=== PATIENT | female | born 1950 ===

== ENCOUNTER 2024-08-22 23:16 | Inpatient (IN) | payer OTHER, MEDICARE ==
[~2024-08-22] VITALS: Ht 157.5 cm; Wt 83.5 kg
[2024-08-23] MEDS: SODIUM CHLORIDE 0.9% 1,000 ML IV ONE (00:09)
[2024-08-23 00:10] VITALS: PULSE 99; RESP 16; O2SAT 94
--- NOTE | 2024-08-23 04:25 | ED.PDOC ---
History of Present Illness HPI Comments 74 y/o obese F is BIBA for c/o syncope, today. Per EMS report, patient's family called after patient had a sudden and unprovoked, witnessed syncopal episode at home. Family on scene commented on patient dealing with flu-like symptoms, which includes nausea, vomiting, and diarrhea, for the past few days prior. Patient was stated to had another syncopal episode secondary to bradycardic onset after endorsing on lower abdominal pain and nausea en route. Upon arrival to ED, patient is back at her baseline, with no reported chest pain, shortness of breath, weakness, numbness, or other associated symptoms or modifiers at this time. Chief Complaint: Syncope Time Seen by MD: 03:50 Reviewed Notes: Nurses Notes, Dispatch Associate Notes, Medications, Allergies Allergies: Coded Allergies: Penicillins (Verified Allergy, Unknown, 08/23/24) Information Source: Patient, Emergency Med Personnel Mode of Arrival: EMS Severity: Moderate Timing: Hours Duration: Since onset Prehospital treatment: 12 Lead EKG, Senior Sharepoint Architect Past Medical History PAST MEDICAL HISTORY: Denies Surgical History: Denies all surgeries ON SITE PROPERTY MANAGER History: Denies all ON SITE PROPERTY MANAGER Hx Family History Family History: Unknown Social History Smoker: Non-Smoker Alcohol: Denies ETOH Use Drugs: Denies Drug Use Lives In: Home All Other Systems: Reviewed and Negative (Comprehensive systems review obtained and negative except for what is stated in the HPI.) Physical Exam General Appearance: No Apparent Distress, Obese HEENT: Normal ENT Inspection, Pharynx Normal, TMs Normal Neck: Full Range of Motion, Non-Tender, Normal, Normal Inspection Respiratory: Chest Non-Tender, Lungs Clear, No Accessory Muscle Use, No Respiratory Distress, Normal Breath Sounds Cardiovascular: Bradycardia, No Edema, No JVD, No Murmur, No Gallop, Normal Peripheral Pulses, Other (regular rhythm) Breast Exam: Deferred Gastrointestinal: No Organomegaly, Non Tender, No Pulsatile Mass, Normal Bowel Sounds, Soft Genitalia: Deferred Pelvic: Deferred Rectal: Deferred Extremities: No calf tenderness, Normal capillary refill, Normal inspection, Normal range of motion, Non-tender, No pedal edema Musculoskeletal : Apperance: Normal Neurologic: Alert, senior cytotechnologist II-XII nml as Tested, No Motor Deficits, Normal Affect, Normal Mood, No Sensory Deficits Cerebellar Function: Normal Reflexes: Normal Skin: Dry, Normal Color, Warm Lymphatic: No Adenopathy Was a procedure done? Was a procedure done?: No EKG EKG : Pulse Rate (adult): 67 [place]: Normal Cardiac Rhythm: NSR Block: None Hypertrophy: None ST: Normal Differential Dx Considerations may include: vasovagal response, bradycardia, electrolyte imbalance, viral syndrome, hypoxia, among others X-Ray, Labs, Meds, VS Vital Signs Date Time Temp Pulse Resp B/P (MAP) Pulse Ox O2 Delivery O2 Flow Rate FiO2 08/23/24 05:00 88 18 132/71 (91) 94 08/23/24 04:25 67 08/23/24 04:00 94 21 127/70 (89) 97 08/23/24 03:00 85 13 141/58 (85) 94 08/23/24 01:00 86 10 142/62 (88) 95 08/23/24 00:10 99 16 94 Room Air* 0 21 08/23/24 00:09 98.7 99 16 142/88 (106) 94 98.7 08/22/24 23:24 67 08/22/24 23:16 98.4 62 18 138/74 (95) 97 98.4 Lab Test 08/23/24 04:30 Range/Units White Blood Count 12.6 H 4.4-10.8 10^3/uL Red Blood Count 4.90 4.0-5.20 10^6/uL Hemoglobin 13.2 12.2-16.2 g/dL Hematocrit 40.1 36.0-46.0 % Mean Corpuscular Volume 81.8 80.0-100.0 fL Mean Corpuscular Hemoglobin 27.0 L 28.0-32.0 pg Mean Corpuscular Hemoglobin Concent 33.0 32.0-36.0 g/dL Red Cell Distribution Width 14.8 H 11.8-14.3 % Platelet Count 328 140-450 10^3/uL Mean Platelet Volume 8.0 6.9-10.8 fL Neutrophils (%) (Auto) 81.6 H 37.0-80.0 % Lymphocytes (%) (Auto) 12.0 10.0-50.0 % Monocytes (%) (Auto) 5.7 0.0-12.0 % Eosinophils (%) (Auto) 0.3 0.0-7.0 % Basophils (%) (Auto) 0.4 0.0-2.0 % Neutrophils # (Auto) 10.3 H 1.6-8.6 10 ^3/uL Lymphocytes # (Auto) 1.5 0.4-5.4 10 ^3/uL Monocytes # (Auto) 0.7 0-1.3 10 ^3/uL Eosinophils # (Auto) 0 0-0.8 10 ^3/uL Basophils # (Auto) 0 0-0.2 10 ^3/uL Nucleated Red Blood Cells 0.0 % Sodium Level 141 136-145 mmol/L Potassium Level 3.7 3.5-5.1 mmol/L Chloride Level 110 H 98-107 mmol/L Carbon Dioxide Level 24 20-31 mmol/L Anion Gap 7 5-15 Blood Urea Nitrogen 8 L 9-23 mg/dL Creatinine 0.59 0.550-1.02 mg/dL Glomerular Filtration Rate Calc 93 >90 mL/min BUN/Creatinine Ratio 13.6 10.0-20.0 Serum Glucose 123 H 74-106 mg/dL Calcium Level 8.6 L 8.7-10.4 mg/dL Troponin I High Sensitivity 5 </=34 ng/L Current Medications Medications (Trade) Dose Ordered Sig/Denisha Route Start Time Stop Time Status Last Admin Sodium Chloride 1,000 ml @ 1,000 mls/hr Q1H ONCE IV 08/23/24 05:00 08/23/24 05:59 08/23/24 00:09 Time of 1ST Reevaluation: 04:20 Reevaluation 1ST: Unchanged Patient Education/Counseling: Diagnosis, Treatment Family Education/Counseling: No Family Present Additional Information Previous visit documents reviewed: n/a The following tests were ordered, and results were reviewed by me: CXR, troponin, UA, CBC, BMP, EKG Additional Information was gathered from interviewing the following independent historians: EMS I reviewed and agreed with the following test results read by other providers: CXR I discussed treatment and results with medical personnel and: Patient Departure 1 Departure Time of Disposition: 04:39 (Patient presented with syncope today and should be admitted. Data: 1. I ordered and reviewed the result of at least 3 labs including a CBC, BMP, and troponin. 2. I independently interpreted the following tests: EKG which shows a sinus arrhythmia and a chest x-ray which shows benign chest and a CT head which shows benign brain.Risk:This patient has a high risk of morbidity due to further diagnostic testing or treatment and may suffer from an acute cardiac, neurologic, or infectious disorder. Rationale: Patient should be admitted to the hospital for further management.) Impression: Primary Impression: Syncope and collapse Additional Impression: Tachy-anne syndrome Disposition: ADMITTED INPATIENT Admit to: Med Surg Condition: Serious Critical Care Note Critical Care Time?: No Stability Stability form required: No Heart Score Heart Score: Heart Score Response (Comments) Value History Moderate Suspicious 1 EKG Normal 0 Age >65 2 Risk Factors >3 or Hx ASHD 2 Troponin 1-2 x's Normal limit 1 Total 6 I personally scribed for ANN FENG MD ([email or web address]) on 08/23/24 at 04:25. Electronically submitted by Leopoldo Berry ([email or web address]). ANN FENG MD Aug 23, 2024 04:25
--- NOTE | 2024-08-23 04:37 | DVH ---
CHEST RADIOGRAPH Indication: chest pain Technique: Single frontal view of the chest was obtained Comparison: None FINDINGS: Lines and Tubes: None Lungs: No focal consolidation. Pleura: No effusion. No pneumothorax. Cardiomediastinal contours: Unremarkable Bones: No acute osseous abnormality. IMPRESSION: 1. No acute cardiopulmonary disease.
[2024-08-23 05:04] LABS: Basophils # (auto) 0 10 ^3/uL (0-0.2); Basophils % (auto) 0.4 % (0.0-2.0); Eosinophils # (auto) 0 10 ^3/uL (0-0.8); Eosinophils % (auto) 0.3 % (0.0-7.0); Hematocrit 40.1 % (36.0-46.0); Hemoglobin 13.2 g/dL (12.2-16.2); Lymphocytes # (auto) 1.5 10 ^3/uL (0.4-5.4); Mean Corpuscular Volume 81.8 fL (80.0-100.0); Monocytes # (auto) 0.7 10 ^3/uL (0-1.3); Monocytes % (auto) 5.7 % (0.0-12.0); Neutrophils # (auto) 10.3 10 ^3/uL (1.6-8.6); Neutrophils % (auto) 81.6 % (37.0-80.0); Platelet Count (auto) 328 10^3/uL (140-450); Red Cell Distribution Width 14.8 % (11.8-14.3); White Blood Cell 12.6 10^3/uL (4.4-10.8)
--- NOTE | 2024-08-23 05:07 | DVH ---
EXAM: CT HEAD WITHOUT CONTRAST INDICATION: syncope TECHNIQUE: CT of the head without intravenous contrast. Coronal and sagittal reformatted images are s ubmitted. Radiation Dose : 1. Head: CT Dose: CTDI volume is 54.44 mGy. Dose-length product is 872.73 mGy*cm The dose indicators for CT are the volume Computed Tomography (CT) Dose Index (CTDIvol) and the Dose Length Product (DLP), and are measured in units of mGy and mGy-cm, respectively. These indicators are not patient dose, but values generated from the CT scanner acquisition factors. The report includes radiation exposure data for exposures received during this examination. All CT scans at this medical facility are performed using dose modulation techniques as appropriate to a performed exam including the following: Automated exposure control was utilized; adjustment of the MA and/or KV according to patient size; and use of iterative reconstruction technique. COMPARISON: None FINDINGS: There is no evidence of acute intracranial hemorrhage, extra-axial collection, mass effect, midline s hift, herniation or hydrocephalus. Punctate calcifications scattered throughout the brain parenchymal. The ventricles, sulci and cisterns are age appropriate. The herman-white differentiation is intact. Mastoid air cells are clear. Mild mucosal thickening in the maxillary sinuses. No depressed calvarial fracture. The surrounding soft tissues are unremarkable. IMPRESSION: 1. No evidence of acute intracranial abnormality. 2. Punctate intracranial calcifications may reflect sequelae of neurocysticercosis.
[2024-08-23 05:13] LABS: Anion Gap 7 (5-15); Carbon Dioxide 24 mmol/L (20-31); Potassium 3.7 mmol/L (3.5-5.1); Sodium 141 mmol/L (136-145)
[2024-08-23 05:19] LABS: BUN/Creatinine Ratio 13.6 (10.0-20.0)
[2024-08-23 05:20] LABS: Blood Urea Nitrogen 8 mg/dL (9-23); Calcium 8.6 mg/dL (8.7-10.4); Chloride 110 mmol/L (98-107); Glucose 123 mg/dL (74-106)
[2024-08-23 08:00] VITALS: PULSE 63; RESP 16; O2SAT 94
[2024-08-23 08:39] LABS: Urine Bacteria None Seen /hpf (None Seen)
[2024-08-23 08:47] LABS: Urine Blood Negative /uL (Negative); Urine Clarity Clear (Clear); Urine Color Light-Yellow (Yellow); Urine Protein, UAD Negative (Negative); Urine Specific Gravity 1.012 (1.001-1.035); Urine Squamous Epithelial Cell FEW /hpf (<5); Urine Urobilinogen Normal (Negative); Urine WBC 7 /HPF (0-5)
[2024-08-23] MEDS ORDERED: ACETAMINOPHEN 325 MG TAB PO PRN (11:30)
[2024-08-23] MEDS ORDERED: MORPHINE SULFATE INJ 2 MG/ml SYRG IV PRN (11:30)
[2024-08-23] MEDS ORDERED: DOCUSATE SOD 100 MG CAP PO PRN (11:30)
[2024-08-23] MEDS ORDERED: NITROGLYCERIN 0.4 MG SL TAB SL PRN (11:30)
[2024-08-23] MEDS ORDERED: HYDROcodone-ACET 5/325MG TAB PO PRN (11:30)
[2024-08-23] MEDS ORDERED: ONDANSETRON HCL 4 MG/2 ML VIAL IV PRN (11:30)
--- NOTE | 2024-08-23 11:51 | DVHHP2 ---
History of Present Illness Reason for Visit: syncopal episode History of Present Illness Annel Espinoza is a 74-year-old female with past medical history of cervical cancer with hysterectomy in the , who was brought to the hospital for syncopal episode. Patient has been experiencing nausea, diarrhea, and lower abdominal pain for 2 days. Last night when exiting the bathroom she had a syncopal episode. Family called EMS. While EMS was there, they placed her on the monitor, she began to feel bad again, they witnessed her HR drop into the 30's and she had another syncopal episode. While in route to the hospital, her HR dropped into the 30s again, and she had another syncopal episode. At my time of assessment I witnessed the patient's HR fluctuate from low 60-90s while she was lying in bed. Heme/Onc: Cancer (cervical cancer in the ) Past Surgical History: Hysterectomy Smoke: No ALCOHOL: none Drugs: None Lives: with Family Review of Systems Constitutional: No: Fever, Chills, Sweats, Weakness, Malaise, Other Eyes: No: Pain, Vision change, Conjunctivae inflammation, Eyelid inflammation, Other, Redness ENT: No: Ear pain, Ear discharge, Nose pain, Nose discharge, Nose congestion, Mouth pain, Mouth swelling, Throat pain, Throat swelling, Other Respiratory: No: Cough, Dry, Shortness of breath, SOB with excertion, Wheezing, Hemoptysis, Pleuritic Pain, Sputum, Wheezing, Other Cardiovascular: No: Chest Pain, Palpitations, Orthopnea, Paroxysmal Noc. Dyspnea, Edema, Lt Headedness, Other Gastrointestinal: Nausea (2 days), Abdominal Pain (2 days), Diarrhea (2 days); No: Vomiting, Constipation, Melena, Hematochezia, Other Genitourinary: No Dysuria, No Frequency, No Incontinence, No Hematuria, No Retention, No Other Musculoskeletal: No: other, neck pain, shoulder pain, arm pain, back pain, hand pain, leg pain, foot pain Skin: No: Rash, Lesions, Jaundice, Bruising, Other Neurological: Other (Syncopal episode); No: Weakness, Numbness, Incoordination, Change in speech, Confusion, Seizures Allergies: Coded Allergies: Penicillins (Verified Allergy, Unknown, 08/23/24) Exam Vital Signs Vital Signs Date Time Temp Pulse Resp B/P (MAP) Pulse Ox O2 Delivery O2 Flow Rate FiO2 08/23/24 10:00 62 16 109/47 (67) 97 08/23/24 09:00 98.1 98.1 08/23/24 08:00 Room Air* 0 21 General Appearance: Alert, Oriented X3, Cooperative, mild distress HEENT: Atraumatic, PERRLA Respiratory: Clear to auscultation, Normal air movement Cardiovascular: Normal S1, Normal S2, Other (Sinus arrhythmia,) Abdominal: Normal bowel sounds, Soft, Other (RLQ pain) Extremities: No clubbing, No cyanosis, No edema, Normal pulses, No tenderness/swelling Skin: No rashes, No breakdown, No significant lesion Neuro: Normal gait, Normal speech, Strength at 5/5 X4 ext Psych/Mental Status: Mental status NL, Mood NL Labs/Xrays Labs Test 08/23/24 08:00 08/23/24 05:45 08/23/24 04:30 Range/Units Urine Color Light-yellow Yellow Urine Clarity Clear Clear Urine pH 6.0 5.0-9.0 Urine Specific [place] 1.012 1.001-1.035 Urine Protein Negative Negative Urine Ketones Negative Negative Urine Blood Negative Negative /uL Urine Nitrite Negative Negative Urine Bilirubin Negative Negative Urine Urobilinogen Normal Negative mg/dL Urine Leukocyte Esterase 2+ Negative /uL Urine RBC 2 0 - 4 /hpf Urine Microscopic WBC 7 H 0-5 /HPF Urine Squamous Epithelial Cells Few <5 /hpf Urine Bacteria None seen None Seen /hpf Urine Glucose Normal Normal mg/dL Troponin I High Sensitivity 4 </=34 ng/L White Blood Count 12.6 H 4.4-10.8 10^3/uL Red Blood Count 4.90 4.0-5.20 10^6/uL Hemoglobin 13.2 12.2-16.2 g/dL Hematocrit 40.1 36.0-46.0 % Mean Corpuscular Volume 81.8 80.0-100.0 fL Mean Corpuscular Hemoglobin 27.0 L 28.0-32.0 pg Mean Corpuscular Hemoglobin Concent 33.0 32.0-36.0 g/dL Red Cell Distribution Width 14.8 H 11.8-14.3 % Platelet Count 328 140-450 10^3/uL Mean Platelet Volume 8.0 6.9-10.8 fL Neutrophils (%) (Auto) 81.6 H 37.0-80.0 % Lymphocytes (%) (Auto) 12.0 10.0-50.0 % Monocytes (%) (Auto) 5.7 0.0-12.0 % Eosinophils (%) (Auto) 0.3 0.0-7.0 % Basophils (%) (Auto) 0.4 0.0-2.0 % Neutrophils # (Auto) 10.3 H 1.6-8.6 10 ^3/uL Lymphocytes # (Auto) 1.5 0.4-5.4 10 ^3/uL Monocytes # (Auto) 0.7 0-1.3 10 ^3/uL Eosinophils # (Auto) 0 0-0.8 10 ^3/uL Basophils # (Auto) 0 0-0.2 10 ^3/uL Nucleated Red Blood Cells 0.0 % Sodium Level 141 136-145 mmol/L Potassium Level 3.7 3.5-5.1 mmol/L Chloride Level 110 H 98-107 mmol/L Carbon Dioxide Level 24 20-31 mmol/L Anion Gap 7 5-15 Blood Urea Nitrogen 8 L 9-23 mg/dL Creatinine 0.59 0.550-1.02 mg/dL Glomerular Filtration Rate Calc 93 >90 mL/min BUN/Creatinine Ratio 13.6 10.0-20.0 Serum Glucose 123 H 74-106 mg/dL Calcium Level 8.6 L 8.7-10.4 mg/dL CHEST RADIOGRAPH FINDINGS: Lines and Tubes: None Lungs: No focal consolidation. Pleura: No effusion. No pneumothorax. Cardiomediastinal contours: Unremarkable Bones: No acute osseous abnormality. IMPRESSION: 1. No acute cardiopulmonary disease. EXAM: CT HEAD WITHOUT CONTRAST FINDINGS: There is no evidence of acute intracranial hemorrhage, extra-axial collection, mass effect, midline shift, herniation or hydrocephalus. Punctate calcifications scattered throughout the brain parenchymal. The ventricles, sulci and cisterns are age appropriate. The herman-white differentiation is intact. Mastoid air cells are clear. Mild mucosal thickening in the maxillary sinuses. No depressed calvarial fracture. The surrounding soft tissues are unremarkable. IMPRESSION: 1. No evidence of acute intracranial abnormality. 2. Punctate intracranial calcifications may reflect sequelae of neurocysticercosis. Assessment/Plan Assessment/Plan Assessment: Syncope and collapse, Possible tachy-anne syndrome, Abdominal pain, Leukocytosis, Plan: Admit to Tele, Cardiology consult, ECHO, Carotid duplex, TSH, Lipid panel, CT abdomen/pelvis, IV antibiotics, Plan discussed with: Patient My Orders Orders - NICHOLAS LAWSON Procedure Category Date Status Time Ct Ab Pel Wo Con-No CT 08/23/24 Logged Oral Or Iv 11:25 Admit ADMIT 08/23/24 Verified 11:26 Code Status CODE 08/23/24 Verified 11:26 2 Gm Sodium Diet DIET 08/23/24 Verified Lunch Hydrocodone-Acet PHA 08/23/24 Verified 5/325mg Tab ([place] 11:30 Ondansetron Hcl PHA 08/23/24 Verified (Zofran) 11:30 Docusate Sodium PHA 08/23/24 Verified Capsule (Colace 11:30 Date of Service: Aug 23, 2024 Billing Provider: NICHOLAS LAWSON Common Visit Codes: [id number] INP/OBS CARE (HIGH) NICHOLAS LAWSON Aug 23, 2024 11:51
--- NOTE | 2024-08-23 12:16 | DVH ---
CT CT AB PEL WO CON-NO ORAL OR IV INDICATION: Abdominal pain EXAM DATE: 08/23/2024 11:46 AM COMPARISON: None RADIATION DOSE: CTDIvol: 14.09 mGy, DLP: 806.96 mGy*cm PROCEDURE: Helical CT images were obtained of the abdomen and pelvis without IV contrast Sagittal and coronal reconstructions are provided. ORAL CONTRAST: None. ADDITIONAL IMAGES / REFORMATS: None All C T scans at this medical facility are performed using dose modulation techniques as appropriate to a p erformed exam including the following: Automated exposure control was utilized; adjustment of the MA and/or KV according to patient size; and use of iterative reconstruction technique. FINDINGS: LUNG BASE: Normal. LIVER: Normal. GALLBLADDER AND BILIARY TREE: No calcified gallstones. Normal caliber wall. No intra- or extrahepatic biliary ductal dilation. PANCREAS: Normal. SPLEEN: Normal. BOWEL: Severe colonic diverticulosis with mild pericolonic fat stranding at the sigmoid colon can be seen with mild diverticulitis. Normal appendix. ADRENALS: Normal. KIDNEYS AND URETER: Normal. BLADDER: Normal. REPRODUCTIVE ORGANS: Normal. LYMPH NODES:No lymphadenopathy. PERITONEUM: No ascites or free air. No other fluid collection. VESSELS: Scattered atherosclerotic calcifications are noted. RETROPERITONEUM: Normal. ABDOMINAL WALL: Normal. BONES: Scattered osseous degenerative changes are noted. IMPRESSION: Severe colonic diverticulosis with mild pericolonic fat stranding at the sigmoid colon can be seen wi th mild diverticulitis.
--- NOTE | 2024-08-23 13:10 | DVH ---
Carotid Duplex Date: 08/23/2024 12:28 PM Clinical History: Syncope and collapse Comparison: None Technique: Duplex Doppler evaluation of the extracranial carotid and vertebral arteries including color Doppler and spectral/pulsed waveform analysis was performed. Findings: RIGHT SIDE: The peak systolic velocities are 87 cm/s in the distal CCA and 98 cm/s in the proximal ICA.The ICA/CC A ratio is less than 1. The external carotid artery is patent with peak systolic velocity of 156 cm/s proximally. There is appropriate antegrade flow in the right vertebral artery. LEFT SIDE: The peak systolic velocities are 75 cm/s in the distal CCA and 80 cm/s in the proximal ICA. The ICA/ CCA ratio is less than 2. The external carotid artery is patent with peak systolic velocity of 128 cm/s proximally. There is appropriate antegrade flow in the left vertebral artery. IMPRESSION: No hemodynamically significant stenosis noted in the right carotid system. No hemodynamically significant stenosis noted in the left carotid system. Reference: Radiology 2003; 229:[id number]
[2024-08-23 16:15] VITALS: BP 134/59; PULSE 69; RESP 18; TEMP 98.1; O2SAT 98
[2024-08-23 17:16] VITALS: BP 135/58; PULSE 68; RESP 18; TEMP 98; O2SAT 99
--- NOTE | 2024-08-23 17:22 | DVHINCON2 ---
Date Seen: Aug 23, 2024 Referring Physician REVA Swain Reason for Consultation Syncope History of Present Illness This is a 74-year-old female who presented to the emergency room via EMS with a chief complaint of syncopal event. She worked on her yard on a iron day with poor oral hydration the day prior to the event. Reports generalized weakness associated with pelvic pain, episodes of diarrhea, and some nausea. States she developed severe pain to the pelvic area associated with some dizziness and soon after she passed out on the couch with has been calling 911. Upon EMS arrival she was found with a heart rate in the 30s bpm with a subsequent bradycardic event en route to the hospital. Upon arrival to the emergency room she underwent a 12 lead electrocardiogram revealing a sinus rhythm at 67 bpm with an associated left bundle branch block. Serial troponin are negative. Denies any further symptoms. Denies chest pain, diaphoresis, palpitations, SOB, or further pelvic pain. Denies familial history for cardiovascular disease. Significant medical history includes hypertension without medical therapy, history of cervical cancer status post hysterectomy , history of COVID-19 infection, and obesity. Allergies: Coded Allergies: Penicillins (Verified Allergy, Unknown, 08/23/24) Current Medications Current Medications Medications (Trade) Dose Ordered Sig/Denisha Route PRN Reason Start Time Stop Time Status Last Admin Acetaminophen/ Hydrocodone Bitart ([place] 5/325MG Tab) 1 tab Q4HP PRN PO MODERATE PAIN (4-6 PAIN SCALE) 08/23/24 11:30 Ondansetron HCl (Zofran) 4 mg Q4HP PRN IV NAUSEA / VOMITING 08/23/24 11:30 Docusate Sodium (Colace Capsule) 100 mg BIDPRN PRN PO FOR CONSTIPATION 08/23/24 11:30 Acetaminophen (Tylenol Tablet) 650 mg Q6HP PRN PO PAIN SCALE 1-3 OR TEMP>100.4 08/23/24 11:30 Nitroglycerin (Ntrostat Sublingual) 0.4 mg Q5MINP PRN SL FOR CHEST PAIN 08/23/24 11:30 Morphine Sulfate 2 mg Q30M PRN IV FOR CHEST PAIN 08/23/24 11:30 Vital Signs Vital Signs Date Time Temp Pulse Resp B/P (MAP) Pulse Ox O2 Delivery O2 Flow Rate FiO2 08/23/24 16:00 89 08/23/24 16:00 98.4 16 141/52 (81) 97 98.4 08/23/24 08:00 Room Air* 0 21 Labs/Diagnostic Data Labs Test 08/23/24 08:00 08/23/24 05:45 08/23/24 04:30 Range/Units Urine Color Light-yellow Yellow Urine Clarity Clear Clear Urine pH 6.0 5.0-9.0 Urine Specific [place] 1.012 1.001-1.035 Urine Protein Negative Negative Urine Ketones Negative Negative Urine Blood Negative Negative /uL Urine Nitrite Negative Negative Urine Bilirubin Negative Negative Urine Urobilinogen Normal Negative mg/dL Urine Leukocyte Esterase 2+ Negative /uL Urine RBC 2 0 - 4 /hpf Urine Microscopic WBC 7 H 0-5 /HPF Urine Squamous Epithelial Cells Few <5 /hpf Urine Bacteria None seen None Seen /hpf Urine Glucose Normal Normal mg/dL Troponin I High Sensitivity 4 </=34 ng/L White Blood Count 12.6 H 4.4-10.8 10^3/uL Red Blood Count 4.90 4.0-5.20 10^6/uL Hemoglobin 13.2 12.2-16.2 g/dL Hematocrit 40.1 36.0-46.0 % Mean Corpuscular Volume 81.8 80.0-100.0 fL Mean Corpuscular Hemoglobin 27.0 L 28.0-32.0 pg Mean Corpuscular Hemoglobin Concent 33.0 32.0-36.0 g/dL Red Cell Distribution Width 14.8 H 11.8-14.3 % Platelet Count 328 140-450 10^3/uL Mean Platelet Volume 8.0 6.9-10.8 fL Neutrophils (%) (Auto) 81.6 H 37.0-80.0 % Lymphocytes (%) (Auto) 12.0 10.0-50.0 % Monocytes (%) (Auto) 5.7 0.0-12.0 % Eosinophils (%) (Auto) 0.3 0.0-7.0 % Basophils (%) (Auto) 0.4 0.0-2.0 % Neutrophils # (Auto) 10.3 H 1.6-8.6 10 ^3/uL Lymphocytes # (Auto) 1.5 0.4-5.4 10 ^3/uL Monocytes # (Auto) 0.7 0-1.3 10 ^3/uL Eosinophils # (Auto) 0 0-0.8 10 ^3/uL Basophils # (Auto) 0 0-0.2 10 ^3/uL Nucleated Red Blood Cells 0.0 % Sodium Level 141 136-145 mmol/L Potassium Level 3.7 3.5-5.1 mmol/L Chloride Level 110 H 98-107 mmol/L Carbon Dioxide Level 24 20-31 mmol/L Anion Gap 7 5-15 Blood Urea Nitrogen 8 L 9-23 mg/dL Creatinine 0.59 0.550-1.02 mg/dL Glomerular Filtration Rate Calc 93 >90 mL/min BUN/Creatinine Ratio 13.6 10.0-20.0 Serum Glucose 123 H 74-106 mg/dL Calcium Level 8.6 L 8.7-10.4 mg/dL Assessment Syncope and collapse, ?vasovagal Rule out structural heart disease Left bundle branch block, newly diagnosed Reported transient bradycardia rule out sick sinus syndrome Acute diverticulitis ?Neurocysticercosis Hypertension Obesity Plan/Recommendation (Dr. Marquez) Possible vasovagal syncope as the symptoms developed after experiencing severe pelvic pain. There is reported transient sinus bradycardia with a heart rate in the 30s bpm with no evidence of sinus pauses or atrioventricular blocks on twelve lead electrocardiogram or nurse monitoring. Bilateral carotid artery duplex is negative for stenosis. We will continue further cardiac evaluation with a transthoracic echocardiogram to evaluate cardiac function. In the meantime, monitor ECG changes closely and notify. Consider further workup for acute diverticulitis. Initiate ABX therapy and DVT/VTE prophylaxis. Thank you for allowing us to participate in this patient's care. Please call if you have any questions or concerns. This medical document was created using an electronic medical record system with voice recognition software and computerized dictation system. Although this document has been carefully reviewed, there might still be some phonetic and typographical errors. Occasional wrong-word or ``sound-alike substitutions may have occurred due to the inherent limitations of voice recognition software. These areas are purely typographical due to imperfections of the software programs and do not reflect any compromise in the patient's medical care. Please read the chart carefully and recognize, using context, where these substitutions have occurred. Plan discussed with: Patient, Other NYHA Physical activity limitations: NA Date of Service: Aug 23, 2024 Billing Provider: ANKIT LU [employer]DL[employer]APPER Cardiology Common Codes: [id number] INP/OBS CARE (High) ANKIT LU [facility] Aug 23, 2024 17:22
[2024-08-23 17:52] LABS: Magnesium 2.1 mg/dL (1.6-2.6)
[2024-08-23] MEDS: cefTRIAXone 1GM/50ML D5W 50 ML IV ONE (19:08)
[2024-08-23 20:03] VITALS: PULSE 68; RESP 18; O2SAT 96
[2024-08-23 21:00] VITALS: BP 136/61; PULSE 89; RESP 18; TEMP 98; O2SAT 96
[2024-08-24] VITALS (9 sets, daily range): BP systolic 135–163; BP diastolic 62–84; PULSE 63–94; RESP 18–20; TEMP 97.8–98.8; O2SAT 94–99
[2024-08-24 07:30] LABS: Basophils # (auto) 0 10 ^3/uL (0-0.2); Basophils % (auto) 0.7 % (0.0-2.0); Eosinophils # (auto) 0.3 10 ^3/uL (0-0.8); Eosinophils % (auto) 5.2 % (0.0-7.0); Hematocrit 41.9 % (36.0-46.0); Hemoglobin 13.9 g/dL (12.2-16.2); Lymphocytes # (auto) 1.5 10 ^3/uL (0.4-5.4); Lymphocytes % (auto) 23.7 % (10.0-50.0); Mean Corpuscular Hemoglobin 27.2 pg (28.0-32.0); Mean Corpuscular Hgb Conc. 33.1 g/dL (32.0-36.0); Mean Corpuscular Volume 82.2 fL (80.0-100.0); Monocytes # (auto) 0.5 10 ^3/uL (0-1.3); Monocytes % (auto) 7.8 % (0.0-12.0); Neutrophils # (auto) 4.1 10 ^3/uL (1.6-8.6); Neutrophils % (auto) 62.6 % (37.0-80.0); Nucleated Red Blood Cells % 0.1 %; Platelet Count (auto) 331 10^3/uL (140-450); Red Cell Distribution Width 14.9 % (11.8-14.3); White Blood Cell 6.5 10^3/uL (4.4-10.8)
[2024-08-24 07:41] LABS: Alanine Aminotransferase 20 U/L (7-40); Alkaline Phosphatase 69 U/L (46-116); Anion Gap 7 (5-15); Aspartate Aminotransferase 18 U/L (13-40); BUN/Creatinine Ratio 20.6 (10.0-20.0); Bilirubin, Total 0.3 mg/dL (0.2-1.0); Blood Urea Nitrogen 13 mg/dL (9-23); Calcium 8.9 mg/dL (8.7-10.4); Carbon Dioxide 26 mmol/L (20-31); Glucose 102 mg/dL (74-106); Potassium 4.2 mmol/L (3.5-5.1); Sodium 143 mmol/L (136-145); Total Protein 6.3 g/dL (5.7-8.2)
[2024-08-24 07:45] LABS: Chloride 110 mmol/L (98-107)
[2024-08-24] MEDS: cefTRIAXone 1GM/50ML D5W 50 ML IV SCH (08:56)
[2024-08-24] MEDS: ENOXAPARIN SOD 40 MG/0.4 ML SYRINGE SC SCH (09:00)
--- NOTE | 2024-08-24 09:20 | ECG ---
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
[2024-08-24] MEDS ORDERED: METOPROLOL SUCCINATE XL 50 MG TAB PO ONE (10:30)
--- NOTE | 2024-08-24 10:30 | DVHPN2 ---
Consult Progress Note Date Seen: Aug 24, 2024 Subjective Review of Systems: CVS:Normal, RESPIRATORY:Normal, NEURO:Normal Other Systems: Denies any cardiac symptoms Objective vital signs Vital Sign Date Time Temp Pulse Resp B/P (MAP) Pulse Ox O2 Delivery O2 Flow Rate FiO2 08/24/24 09:00 98.0 94 20 160/73 (102) 99 98.0 08/23/24 20:03 Room Air* 0 21 Total Intake and Output 08/23/24 08/23/24 08/24/24 15:00 23:00 07:00 Intake Total 100 ml Output Total 1000 ml Balance -1000 ml 100 ml medications Current Medications Medications Dose Ordered Sig/Denisha Route Start Time Stop Time Status Last Admin Dose Admin Acetaminophen/ Hydrocodone Bitart 1 tab Q4HP PRN PO 08/23/24 11:30 Ondansetron HCl 4 mg Q4HP PRN IV 08/23/24 11:30 Docusate Sodium 100 mg BIDPRN PRN PO 08/23/24 11:30 Acetaminophen 650 mg Q6HP PRN PO 08/23/24 11:30 Nitroglycerin 0.4 mg Q5MINP PRN SL 08/23/24 11:30 Morphine Sulfate 2 mg Q30M PRN IV 08/23/24 11:30 Ceftriaxone Sodium 50 ml @ 100 mls/hr DAILY@09 IV 08/24/24 09:00 08/24/24 08:56 100 MLS/HR Enoxaparin Sodium 40 mg DAILY SC 08/24/24 10:00 08/24/24 09:00 40 MG Metoprolol Succinate 25 mg DAILY PO 08/25/24 10:00 UNV Examination: LUNGS:Normal, CVS:Normal (NSR. No overnight evidence of SSS) laboratory and microbiology Laboratory Tests 08/24/24 06:18 Test 08/24/24 06:18 Range/Units Serum Glucose 102 74-106 mg/dL Problem List/Assessment/Plan Problem List/Assessment/Plan Syncope and collapse, ?vasovagal event Reported transient bradycardia rule out sick sinus syndrome Rule out structural heart disease Left bundle branch block, newly diagnosed Acute diverticulitis ?Neurocysticercosis Pre-diabetes, newly diagnosed Hypertension Obesity Plan/Recommendation (Dr. Marquez) Possible vasovagal syncope as the symptoms developed after experiencing severe pelvic pain. There is reported transient sinus bradycardia with a heart rate in the 30s bpm on the field with no evidence of sinus pauses or atrioventricular blocks on twelve lead electrocardiogram or charger. Initiate BP control, avoid AV pop blocking agents. Bilateral carotid artery duplex is negative for stenosis. We will continue further cardiac evaluation with a transthoracic echocardiogram to evaluate cardiac function. In the setting of an unremarkable echocardiogram, there is no further cardiac work-up at this time. Consider further workup for acute diverticulitis. DVT/VTE prophylaxis. Thank you for allowing us to participate in this patient's care. Please call if you have any questions or concerns. This medical document was created using an electronic medical record system with voice recognition software and computerized dictation system. Although this document has been carefully reviewed, there might still be some phonetic and typographical errors. Occasional wrong-word or ``sound-alike substitutions may have occurred due to the inherent limitations of voice recognition software. These areas are purely typographical due to imperfections of the software programs and do not reflect any compromise in the patient's medical care. Please read the chart carefully and recognize, using context, where these substitutions have occurred. Plan discussed with: Patient, Other Date of Service: Aug 24, 2024 Billing Provider: ANKIT LU Cardiology Common Codes: [id number] INP/OBS CARE(Mod) ANKIT LU Aug 24, 2024 10:30
[2024-08-24] MEDS: CHLORTHALIDONE 25 MG TAB PO ONE (12:02)
--- NOTE | 2024-08-24 13:20 | DVHSR ---
APPROVED REPORT EXAM: Two-dimensional and M-mode echocardiogram with Doppler and color Doppler. Blood Pressure: 135/62 mmHg INDICATION Syncope and collapse RISK FACTORS Height: 62, Weight: 186 DIMENSIONS LVDd4.8 (3.8-5.7cm)LA (2D)4.0 (1.9-4.0cm)Aortic Root3.4 (2.0-3.7cm) LVDs3.0 (2.5-4.0cm)LA (MM) (1.9-4.0cm)Aortic Cusp Exc1.7 (1.5-2.0cm) EF (%) 57.0 (55-70%)Rt. Atrium (1.9-4.0cm)Asc. Aorta cm IVSd1.0 (0.7-1.1cm)RV (D) (1.8-2.4cm) PWd1.2 (0.7-1.1cm) Mitral Valve MitralMitral Stenosis E wave0.77m/sMV Mean GR.mmHg A wave1.07m/sMV Peak GR.91mmHg E/A ratio0.72D MVAcm2 DECEL [id number] 1/2 Uznx27mi IVRTmsDop MVA3.19cm2 Aortic Valve Aortic ValveAortic Stenosis V11.00m/Adelia Mean GR.4mmHg V21.33m/Adelia Peak GR.7mmHg LVOT Diameter2.0 (1.8-2.4cm)Doppler AVA2.36cm2 Pulmonic Valve V20.92m/s Tricuspid Valve TR Velocity2.47m/s [id number] Conclusion lvef 65% by visual estimate normal rv function no severe valve abnormaliteis noted left atrium enlarged
--- NOTE | 2024-08-24 15:17 | DVHPN2 ---
Progress Note Date Seen: Aug 24, 2024 Medical Necessity Reason Pt with a Central, PICC or Fol: No Subjective Patient reports: No new complaints Review of Systems: HEENT:Normal, CVS:Normal, RESPIRATORY:Normal, GI:Normal, :Normal, MSK:Normal, NEURO:Normal Objective vital signs Vital Sign Date Time Temp Pulse Resp B/P (MAP) Pulse Ox O2 Delivery O2 Flow Rate FiO2 08/24/24 13:00 98.8 63 18 150/72 (98) 94 98.8 08/24/24 08:00 Room Air* 0 21 Total Intake and Output 08/23/24 08/23/24 08/24/24 15:00 23:00 07:00 Intake Total 100 ml Output Total 1000 ml Balance -1000 ml 100 ml medications Current Medications Medications Dose Ordered Sig/Denisha Route Start Time Stop Time Status Last Admin Dose Admin Acetaminophen/ Hydrocodone Bitart 1 tab Q4HP PRN PO 08/23/24 11:30 Ondansetron HCl 4 mg Q4HP PRN IV 08/23/24 11:30 Docusate Sodium 100 mg BIDPRN PRN PO 08/23/24 11:30 Acetaminophen 650 mg Q6HP PRN PO 08/23/24 11:30 Nitroglycerin 0.4 mg Q5MINP PRN SL 08/23/24 11:30 Morphine Sulfate 2 mg Q30M PRN IV 08/23/24 11:30 Ceftriaxone Sodium 50 ml @ 100 mls/hr DAILY@09 IV 08/24/24 09:00 08/24/24 08:56 100 MLS/HR Enoxaparin Sodium 40 mg DAILY SC 08/24/24 10:00 08/24/24 09:00 40 MG Chlorthalidone 25 mg DAILY@BREAKFAST PO 08/25/24 08:00 Examination: GENERAL:Normal, HEENT:Normal, NECK:Normal, LUNGS:Normal, CVS:Normal, ABDOMEN:Normal, MSK:Normal, SKIN:Normal, NEURO:Normal, :Normal laboratory and microbiology Laboratory Tests 08/24/24 06:18 Test 08/24/24 06:18 Range/Units Serum Glucose 102 74-106 mg/dL Problem List/Assessment/Plan Problem List/Assessment/Plan #1 severe abd pain with acute diverticulitis: iv antibiotics #2 ?htn: prn hydralazine #3 syncopy ? vasovagal #4 obesity #5 extensive diverticulosis advance care planning - full code- time spent 19 mins Plan discussed with: Patient, Spouse Date of Service: Aug 24, 2024 Billing Provider: AFSHIN LEIVA MD Common Visit Codes: [id number] INP/OBS CARE(HIGH) Secondary Visit Codes: [id number] CARE PLAN 30 MINUTES AFSHIN LEIVA MD Aug 24, 2024 15:16
[2024-08-24] MEDS: hydrALAZINE HCL 20 MG/ML VL IV PRN (16:18)
[2024-08-24] MEDS: metroNIDAZOLE 500MG/100ML 100 ML IV SCH (21:31)
[2024-08-25] VITALS (8 sets, daily range): BP systolic 136–144; BP diastolic 64–83; PULSE 74–98; RESP 17–20; TEMP 97.5–98.4; O2SAT 95–98
[2024-08-25 07:29] LABS: Chloride 106 mmol/L (98-107); Potassium 3.8 mmol/L (3.5-5.1); Sodium 141 mmol/L (136-145)
[2024-08-25 07:30] LABS: Anion Gap 9 (5-15); Calcium 9.3 mg/dL (8.7-10.4); Carbon Dioxide 26 mmol/L (20-31)
[2024-08-25 07:32] LABS: Basophils # (auto) 0.1 10 ^3/uL (0-0.2); Basophils % (auto) 0.8 % (0.0-2.0); Eosinophils # (auto) 0.4 10 ^3/uL (0-0.8); Eosinophils % (auto) 4.8 % (0.0-7.0); Hematocrit 45.7 % (36.0-46.0); Hemoglobin 15.1 g/dL (12.2-16.2); Lymphocytes # (auto) 1.4 10 ^3/uL (0.4-5.4); Lymphocytes % (auto) 17.6 % (10.0-50.0); Mean Corpuscular Hemoglobin 27.1 pg (28.0-32.0); Mean Corpuscular Hgb Conc. 33.1 g/dL (32.0-36.0); Mean Corpuscular Volume 81.6 fL (80.0-100.0); Monocytes # (auto) 0.6 10 ^3/uL (0-1.3); Monocytes % (auto) 7.2 % (0.0-12.0); Neutrophils # (auto) 5.5 10 ^3/uL (1.6-8.6); Neutrophils % (auto) 69.6 % (37.0-80.0); Nucleated Red Blood Cells % 0.1 %; Platelet Count (auto) 390 10^3/uL (140-450); Red Cell Distribution Width 14.8 % (11.8-14.3); White Blood Cell 7.9 10^3/uL (4.4-10.8)
[2024-08-25 07:35] LABS: BUN/Creatinine Ratio 18.9 (10.0-20.0); Blood Urea Nitrogen 14 mg/dL (9-23)
[2024-08-25 07:38] LABS: Glucose 108 mg/dL (74-106)
[2024-08-25] MEDS ORDERED: CHLORTHALIDONE 25 MG TAB PO SCH (08:00)
[2024-08-25] MEDS ORDERED: METOPROLOL SUCCINATE XL 50 MG TAB PO SCH (10:00)
--- NOTE | 2024-08-25 18:04 | DVHPN2 ---
Subjective 08/25 patient is minimally tolerating p.o. liquids and continues to have abdominal pain requiring p.r.n. analgesia. Patient is not ready for discharge. Patient was stable for transfer to [place]. Patient declines transfer and prefers to stay in [facility]. We will continue treatment as outlined below. Reviewed: H&P Changes from previous H/P or p: No Changes General: Per HPI Objective Vitals Vital Signs Date Time Temp Pulse Resp B/P (MAP) Pulse Ox O2 Delivery O2 Flow Rate FiO2 08/25/24 16:45 97.8 84 17 136/68 (90) 96 97.8 08/25/24 08:00 Room Air* 0 21 Intake/Output Intake and Output 08/25/24 07:00 Intake Total 1850 ml Balance 1850 ml Intake Oral 1700 ml IV Total 150 ml # Voids 6 Exam GEN: Healthy appearing, well-developed, NAD. HEENT: NC/AT; MMM. CV: RRR, no m/r/g. LUNGS: CTAB, no w/r/c. ABD: Hypoactive bowel sounds, tender to palpation in bilateral lower quadrants abdomen. EXT: skin Warm, well perfused. no rashes. No clubbing, cyanosis, or edema. NEURO: Ambulating with no limitations. No focal deficits. Medications Current Medications Medications Dose Ordered Sig/Denisha Route Start Time Stop Time Status Last Admin Dose Admin Acetaminophen/ Hydrocodone Bitart 1 tab Q4HP PRN PO 08/23/24 11:30 Ondansetron HCl 4 mg Q4HP PRN IV 08/23/24 11:30 Docusate Sodium 100 mg BIDPRN PRN PO 08/23/24 11:30 Acetaminophen 650 mg Q6HP PRN PO 08/23/24 11:30 Nitroglycerin 0.4 mg Q5MINP PRN SL 08/23/24 11:30 Morphine Sulfate 2 mg Q30M PRN IV 08/23/24 11:30 Ceftriaxone Sodium 50 ml @ 100 mls/hr DAILY@09 IV 08/24/24 09:00 08/25/24 10:13 100 MLS/HR Metronidazole 100 ml @ 100 mls/hr Q8HR IV 08/24/24 22:00 08/25/24 14:15 100 MLS/HR Hydralazine HCl 10 mg Q6HP PRN IV 08/24/24 15:15 08/24/24 16:18 10 MG Laboratory Results Laboratory Tests 08/25/24 06:59 Chemistry Test 08/25/24 06:59 Calcium Level 9.3 mg/dL (8.7-10.4) Urinalysis Test 08/23/24 08:00 Urine Color Light-yellow (Yellow) Urine Clarity Clear (Clear) Urine pH 6.0 (5.0-9.0) Urine Specific [place] 1.012 (1.001-1.035) Urine Protein Negative (Negative) Urine Ketones Negative (Negative) Urine Blood Negative /uL (Negative) Urine Nitrite Negative (Negative) Urine Bilirubin Negative (Negative) Urine Urobilinogen Normal mg/dL (Negative) Urine Leukocyte Esterase 2+ /uL (Negative) Urine RBC 2 /hpf (0 - 4) Urine Microscopic WBC 7 /HPF (0-5) H Urine Squamous Epithelial Cells Few /hpf (<5) Urine Bacteria None seen /hpf (None Seen) Urine Glucose Normal mg/dL (Normal) Labs and/or images reviewed: Labs reviewed by me, Image(s) reviewed by me Assessment/Plan Assessment/Plan 08/25 patient is minimally tolerating p.o. liquids and continues to have abdominal pain requiring p.r.n. analgesia. Patient is not ready for discharge. Patient was stable for transfer to [place]. Patient declines transfer and prefers to stay in [facility]. We will continue treatment as outlined below. #1 severe abd pain with acute diverticulitis: iv antibiotics #2 ?htn: prn hydralazine #3 syncopy ? vasovagal #4 obesity #5 extensive diverticulosis Diet CLD DVT prophylaxis Lovenox GI prophylaxis Protonix 40 IV daily Med surge Full code Plan discussed with: Patient My Orders Orders - CHU ELMORE MD Procedure Category Date Status Time * Foot Setter CONS 08/25/24 Verified Consult Date of Service: Aug 25, 2024 Billing Provider: CHU ELMORE MD Common Visit Codes: [id number] INP/OBS CARE(HIGH) CHU ELMORE MD Aug 25, 2024 18:04
[2024-08-26 05:00] VITALS: BP 105/63; PULSE 82; RESP 18; TEMP 97.3; O2SAT 95
[2024-08-26 07:51] LABS: Basophils # (auto) 0.1 10 ^3/uL (0-0.2); Basophils % (auto) 0.8 % (0.0-2.0); Eosinophils # (auto) 0.3 10 ^3/uL (0-0.8); Eosinophils % (auto) 4.4 % (0.0-7.0); Hematocrit 46.7 % (36.0-46.0); Hemoglobin 15.9 g/dL (12.2-16.2); Lymphocytes # (auto) 1.6 10 ^3/uL (0.4-5.4); Lymphocytes % (auto) 20.7 % (10.0-50.0); Mean Corpuscular Hemoglobin 27.9 pg (28.0-32.0); Mean Corpuscular Volume 82.1 fL (80.0-100.0); Monocytes # (auto) 0.5 10 ^3/uL (0-1.3); Monocytes % (auto) 7.3 % (0.0-12.0); Neutrophils % (auto) 66.8 % (37.0-80.0); Platelet Count (auto) 415 10^3/uL (140-450); Red Blood Cells 5.69 10^6/uL (4.0-5.20); Red Cell Distribution Width 15.1 % (11.8-14.3); White Blood Cell 7.5 10^3/uL (4.4-10.8)
[2024-08-26 08:00] VITALS: PULSE 85
[2024-08-26 08:08] LABS: Anion Gap 9 (5-15); Calcium 9.7 mg/dL (8.7-10.4); Carbon Dioxide 27 mmol/L (20-31); Chloride 103 mmol/L (98-107); Potassium 4.4 mmol/L (3.5-5.1); Sodium 139 mmol/L (136-145)
[2024-08-26 08:15] LABS: BUN/Creatinine Ratio 15.4 (10.0-20.0); Blood Urea Nitrogen 12 mg/dL (9-23); Glucose 106 mg/dL (74-106)
[2024-08-26 13:00] VITALS: BP 148/86; PULSE 85; RESP 18; TEMP 98.6; O2SAT 98
[2024-08-26] MEDS ORDERED: AUG875T PO (15:55)
--- NOTE | 2024-08-26 16:03 | DVHDS2 ---
Discharge Summary Date of Admission Aug 23, 2024 at 11:26 Date of Discharge: Aug 26, 2024 Labs/Diagnostic Data: Laboratory Results Test 08/26/24 07:34 08/24/24 06:18 08/23/24 08:00 08/23/24 05:45 White Blood Count 7.5 10^3/uL (4.4-10.8) Red Blood Count 5.69 10^6/uL (4.0-5.20) Hemoglobin 15.9 g/dL (12.2-16.2) Hematocrit 46.7 % (36.0-46.0) Mean Corpuscular Volume 82.1 fL (80.0-100.0) Mean Corpuscular Hemoglobin 27.9 pg (28.0-32.0) Mean Corpuscular Hemoglobin Concent 34.0 g/dL (32.0-36.0) Red Cell Distribution Width 15.1 % (11.8-14.3) Platelet Count 415 10^3/uL (140-450) Mean Platelet Volume 7.5 fL (6.9-10.8) Neutrophils (%) (Auto) 66.8 % (37.0-80.0) Lymphocytes (%) (Auto) 20.7 % (10.0-50.0) Monocytes (%) (Auto) 7.3 % (0.0-12.0) Eosinophils (%) (Auto) 4.4 % (0.0-7.0) Basophils (%) (Auto) 0.8 % (0.0-2.0) Neutrophils # (Auto) 5.0 10 ^3/uL (1.6-8.6) Lymphocytes # (Auto) 1.6 10 ^3/uL (0.4-5.4) Monocytes # (Auto) 0.5 10 ^3/uL (0-1.3) Eosinophils # (Auto) 0.3 10 ^3/uL (0-0.8) Basophils # (Auto) 0.1 10 ^3/uL (0-0.2) Nucleated Red Blood Cells 0.0 % Sodium Level 139 mmol/L (136-145) Potassium Level 4.4 mmol/L (3.5-5.1) Chloride Level 103 mmol/L (98-107) Carbon Dioxide Level 27 mmol/L (20-31) Anion Gap 9 (5-15) Blood Urea Nitrogen 12 mg/dL (9-23) Creatinine 0.78 mg/dL (0.550-1.02) Glomerular Filtration Rate Calc 79 mL/min (>90) BUN/Creatinine Ratio 15.4 (10.0-20.0) Serum Glucose 106 mg/dL (74-106) Calcium Level 9.7 mg/dL (8.7-10.4) Total Bilirubin 0.3 mg/dL (0.2-1.0) Aspartate Amino Transferase (AST) 18 U/L (13-40) Alanine Aminotransferase (ALT) 20 U/L (7-40) Alkaline Phosphatase 69 U/L (46-116) Total Protein 6.3 g/dL (5.7-8.2) Albumin 4.0 g/dL (3.2-4.8) Urine Color Light-yellow (Yellow) Urine Clarity Clear (Clear) Urine pH 6.0 (5.0-9.0) Urine Specific [place] 1.012 (1.001-1.035) Urine Protein Negative (Negative) Urine Ketones Negative (Negative) Urine Blood Negative /uL (Negative) Urine Nitrite Negative (Negative) Urine Bilirubin Negative (Negative) Urine Urobilinogen Normal mg/dL (Negative) Urine Leukocyte Esterase 2+ /uL (Negative) Urine RBC 2 /hpf (0 - 4) Urine Microscopic WBC 7 /HPF (0-5) Urine Squamous Epithelial Cells Few /hpf (<5) Urine Bacteria None seen /hpf (None Seen) Urine Glucose Normal mg/dL (Normal) Hemoglobin A1c 5.8 % A1C (<5.7) Magnesium Level 2.1 mg/dL (1.6-2.6) Troponin I High Sensitivity 4 ng/L (</=34) Triglycerides Level 99 mg/dL (< 150) Cholesterol Level 133 mg/dL (< 200) LDL Cholesterol 81 mg/dL (< 100) HDL Cholesterol 35 mg/dL (40-59) Thyroid Stimulating Hormone (TSH) 1.45 uIU/mL (0.55-4.78) Other Laboratory Tests 08/26/24 07:34 Brief Hx & Hospital Course: HPI:74-year-old female with past medical history of cervical cancer with hysterectomy in the 1980s, who was brought to the hospital for syncopal episode. Patient has been experiencing nausea, diarrhea, and lower abdominal pain for 2 days. Last night when exiting the bathroom she had a syncopal episode. Family called EMS. While EMS was there, they placed her on the monitor, she began to feel bad again, they witnessed her HR drop into the 30's and she had another syncopal episode. While in route to the hospital, her HR dropped into the 30s again, and she had another syncopal episode. At my time of assessment I witnessed the patient's HR fluctuate from low 60-90s while she was lying in bed. Summary: Patient presented with syncopal episode after suffering from abdominal pain for 2 days associated with nausea and vomiting. On initial evaluation patient is found to have leukocytosis of 12.6, neutrophilia , UA with leukocyte esterase 2+, and otherwise unremarkable. CXR is unremarkable, CT head with all findings of punctate intracranial calcifications reflecting sequelae of neurocysticercosis. CT abdomen and pelvis concerning for Severe colonic diverticulosis with mild pericolonic fat stranding at the sigmoid colon can be seen with mild diverticulitis. Carotid Doppler bilateral negative for any significant stenosis. Orthostasis is negative, telemetry is unconcerning. Patient given IV antibiotics, IV pain control, IV fluids, NPO status which leads to patient improvement. Patient's starts to improve, leukocytosis resolves, shows a tolerating p.o. and still for discharge home on 08/26. Patient to continue discharge plan as below. Diagnosis: acute diverticulitis Extensive diverticulosis Sirs without end-organ damage intractable abdominal pain due to above, resolved Intractable nausea due to above, resolved p.o. intolerance due to above, resolved Syncope, likely vasovagal Leukocytosis, resolved Tachypnea, resolved Neutrophilia, resolved chronic hypertension obesity, BMI 33 Discharge plan: -take Augmentin 875 mg twice daily for 5 days -[id number] pain medications for pain control ( 1st line Tylenol, second- line Motrin/ibuprofen ) -Full liquid diet for at least 1 week, advance diet thereafter -Follow up with PCP to discuss discharge and review symptoms -Continue other home medications Condition at Discharge: Fair Final Diagnosis/Problems List acute diverticulitis Extensive diverticulosis Sirs without end-organ damage intractable abdominal pain due to above, resolved Intractable nausea due to above, resolved p.o. intolerance due to above, resolved Syncope, likely vasovagal Leukocytosis, resolved Tachypnea, resolved Neutrophilia, resolved chronic hypertension obesity, BMI 33 Discharge Disposition: Home Discharge Instruct/Medications Diet: See Comment Diet comment: FLD Activity: No Restrictions, As Tolerated Follow Up/Referral: pcp Medications: below Discharge Statement: "Patient was advised to return to the ER or call 911 if any headaches, dizziness, shortness of breath, chest pain, abdominal pain, bleeding, fevers, or worsening of medical condition. Patient was counseled about treatment plan, medications, possible side effects, patientverbalized understanding. All questions were answered to the best of my ability. This discharge took greater then 30 minutes in planning, reviewing documentation, counseling the patient, and discussing with other team members." Date of Service: Aug 26, 2024 Billing Provider: CHU ELMORE MD Common Visit Codes: [id number]/OBS DISCH DAY >30min CHU ELMORE MD Aug 26, 2024 16:03
== END 2024-08-26 17:57 | disposition home or self-care (01) | DRG 392 ==
LOC: ER 23:16 → OVERFLOW 08-23 11:26 → TELE-WESTW 08-23 17:21
PROVIDERS: ADMIT Student in an Organized Health Care Education/Training Program; ATTEND Student in an Organized Health Care Education/Training Program
DX: K57.32 Diverticulitis of large intestine without perforation or abscess without bleeding (principal); B69.0 Cysticercosis of central nervous system; R65.10 Systemic inflammatory response syndrome (SIRS) of non-infectious origin without acute organ dysfunction; I44.7 Left bundle-branch block, unspecified; I49.5 Sick sinus syndrome; I10 Essential (primary) hypertension; E66.9 Obesity, unspecified; Z88.0 Allergy status to penicillin; Z90.710 Acquired absence of both cervix and uterus; Z85.41 Personal history of malignant neoplasm of cervix uteri; Z68.33 Body mass index [BMI] 33.0-33.9, adult; Z79.899 Other long term (current) drug therapy
CPT/HCPCS: 36415; 70450; 71045; 74176; 80048; 80053; 80061; 81001; 83036; 83735; 84443; 84484; 85025; 93005; 93306; 93886; 96360; G0378; J3490